=== PATIENT | male | born 1955 | race Two or more races ===

== ENCOUNTER 2020-03-24 11:01 | Outpatient (CLI) | payer OTHER | END 2020-03-24 11:24 | disposition home or self-care (01) | LOC: LAB 11:01 | PROVIDERS: ATTEND Internal Medicine Cardiovascular Disease | DX: E11.9 Type 2 diabetes mellitus without complications (principal); I10 Essential (primary) hypertension; E03.8 Other specified hypothyroidism; E78.2 Mixed hyperlipidemia; N40.0 Benign prostatic hyperplasia without lower urinary tract symptoms; E55.9 Vitamin D deficiency, unspecified ==

== ENCOUNTER 2020-03-24 12:07 | Outpatient (CLI) | payer OTHER | END 2020-03-24 12:18 | disposition home or self-care (01) | LOC: RAD 12:07 | PROVIDERS: ATTEND Internal Medicine Cardiovascular Disease | DX: M12.88 Other specific arthropathies, not elsewhere classified, other specified site (principal); J44.9 Chronic obstructive pulmonary disease, unspecified; J32.8 Other chronic sinusitis ==

== ENCOUNTER → 2020-06-02 13:48 | Outpatient (CLI) | payer OTHER | END | disposition home or self-care (01) | LOC: LAB 13:48 | PROVIDERS: ATTEND Radiology Diagnostic Radiology | DX: N20.0 Calculus of kidney (principal) ==

== ENCOUNTER 2020-06-14 09:24 | Outpatient (CLI) | payer OTHER | END 2020-06-14 09:35 | disposition home or self-care (01) | LOC: TOM 09:24 | PROVIDERS: ATTEND Surgery | DX: R07.89 Other chest pain (principal); K29.00 Acute gastritis without bleeding; K64.8 Other hemorrhoids ==

== ENCOUNTER 2020-06-21 07:19 | Outpatient (CLI) | payer OTHER | END 2020-06-21 07:21 | disposition home or self-care (01) | LOC: NUCLEAR 07:19 | PROVIDERS: ATTEND Surgery | DX: K29.00 Acute gastritis without bleeding (principal); R07.89 Other chest pain | CPT/HCPCS: 78264; A9541 ==

== ENCOUNTER → 2021-04-30 | Outpatient (CLI) | payer OTHER | END | disposition home or self-care (01) | LOC: RAD 10:55 | DX: M79.642 Pain in left hand (principal); M79.641 Pain in right hand; M25.511 Pain in right shoulder; M54.89 Other dorsalgia ==